=== PATIENT | female | born 1945 | race Caucasian/White ===

== ENCOUNTER → 2018-09-09 | Outpatient (CLI) | payer OTHER | LOC: HYPER 06:51 | DX: T81.89XD Other complications of procedures, not elsewhere classified, subsequent encounter (principal); L02.91 Cutaneous abscess, unspecified; I10 Essential (primary) hypertension; E66.01 Morbid (severe) obesity due to excess calories; M85.80 Other specified disorders of bone density and structure, unspecified site; M19.90 Unspecified osteoarthritis, unspecified site; R60.0 Localized edema; G47.00 Insomnia, unspecified; Z85.41 Personal history of malignant neoplasm of cervix uteri; Z68.41 Body mass index [BMI] 40.0-44.9, adult; Z87.891 Personal history of nicotine dependence; Y83.8 Other surgical procedures as the cause of abnormal reaction of the patient, or of later complication, without mention of misadventure at the time of the procedure ==

== ENCOUNTER → 2018-09-15 | Outpatient (CLI) | payer OTHER | LOC: HYPER 06:56 | DX: T81.89XD Other complications of procedures, not elsewhere classified, subsequent encounter (principal); L98.422 Non-pressure chronic ulcer of back with fat layer exposed; L02.91 Cutaneous abscess, unspecified; E66.01 Morbid (severe) obesity due to excess calories; I10 Essential (primary) hypertension; M85.80 Other specified disorders of bone density and structure, unspecified site; M19.90 Unspecified osteoarthritis, unspecified site; L73.2 Hidradenitis suppurativa; R60.0 Localized edema; Z87.891 Personal history of nicotine dependence; Z68.41 Body mass index [BMI] 40.0-44.9, adult; Y83.8 Other surgical procedures as the cause of abnormal reaction of the patient, or of later complication, without mention of misadventure at the time of the procedure ==

== ENCOUNTER → 2018-09-29 | Outpatient (CLI) | payer OTHER | LOC: HYPER 06:39 | DX: T81.89XD Other complications of procedures, not elsewhere classified, subsequent encounter (principal); L98.422 Non-pressure chronic ulcer of back with fat layer exposed; L02.91 Cutaneous abscess, unspecified; E66.01 Morbid (severe) obesity due to excess calories; G47.00 Insomnia, unspecified; R60.0 Localized edema; I10 Essential (primary) hypertension; M85.80 Other specified disorders of bone density and structure, unspecified site; M19.90 Unspecified osteoarthritis, unspecified site; Z85.41 Personal history of malignant neoplasm of cervix uteri; Z68.41 Body mass index [BMI] 40.0-44.9, adult; Z87.891 Personal history of nicotine dependence; Y83.8 Other surgical procedures as the cause of abnormal reaction of the patient, or of later complication, without mention of misadventure at the time of the procedure ==

== ENCOUNTER → 2018-10-14 | Outpatient (CLI) | payer OTHER | LOC: HYPER 07:29 | DX: T81.89XD Other complications of procedures, not elsewhere classified, subsequent encounter (principal); L98.422 Non-pressure chronic ulcer of back with fat layer exposed; L02.91 Cutaneous abscess, unspecified; R60.0 Localized edema; E66.01 Morbid (severe) obesity due to excess calories; I10 Essential (primary) hypertension; G47.00 Insomnia, unspecified; M19.90 Unspecified osteoarthritis, unspecified site; M85.80 Other specified disorders of bone density and structure, unspecified site; Z85.41 Personal history of malignant neoplasm of cervix uteri; Z87.891 Personal history of nicotine dependence; Y83.8 Other surgical procedures as the cause of abnormal reaction of the patient, or of later complication, without mention of misadventure at the time of the procedure ==

== ENCOUNTER → 2018-11-17 | Outpatient (CLI) | payer OTHER | LOC: HYPER 07:22 | DX: T81.89XD Other complications of procedures, not elsewhere classified, subsequent encounter (principal); L98.422 Non-pressure chronic ulcer of back with fat layer exposed; L02.91 Cutaneous abscess, unspecified; L73.2 Hidradenitis suppurativa; E66.01 Morbid (severe) obesity due to excess calories; R60.0 Localized edema; I10 Essential (primary) hypertension; G47.00 Insomnia, unspecified; M19.90 Unspecified osteoarthritis, unspecified site; M85.80 Other specified disorders of bone density and structure, unspecified site; Z87.891 Personal history of nicotine dependence; Z68.41 Body mass index [BMI] 40.0-44.9, adult; Z85.41 Personal history of malignant neoplasm of cervix uteri; Y83.8 Other surgical procedures as the cause of abnormal reaction of the patient, or of later complication, without mention of misadventure at the time of the procedure ==